=== PATIENT | female | born 1960 | race Caucasian/White ===

== ENCOUNTER 2017-07-28 22:12 | Emergency (ER) | payer BC, OTHER ==
[2017-07-28] MEDS ORDERED: methylPREDNISolone Sod Succ/PF 125 MG/2 ML VIAL ONE (22:27)
[2017-07-28] MEDS ORDERED: Famotidine/PF 20 mg/2ml Vial ONE (22:27)
[2017-07-28] MEDS ORDERED: diphenhydrAMINE HCl 50 MG/ML 1 ML VIAL ONE (22:27)
[2017-07-28 22:36] LABS: #Basophils 0.1 thou/uL (0.0-0.2); #Eosinphils 0.3 thou/uL (0.0-0.7); #Lymphocytes 3.8 thou/uL (1.20-3.40); #Neutrophils 3.8 thou/uL (1.40-6.50); %Basophils 1.4 % (0.0-1.0); %Eosinophils 3.2 % (0.0-10.0); %Lymphocytes 42.2 % (21.0-51.0); %Monocytes 10.8 % (0.0-10.0); Hematocrit 39.8 % (36.0-47.0); Mean Platelet Volume 8.4 fL (7.4-10.4); Red Blood Cell (RBC) Count 4.73 mill/uL (4.20-5.40); White Blood Cell (WBC) Count 8.9 thou/uL (4.8-10.8)
[2017-07-28 22:51] LABS: ALT (SGPT) 15 U/L (8-55); AST (SGOT) 16 U/L (5-34); Alkaline Phosphatase 53 U/L (40-150); Anion Gap 13 mmol/L (10-20); BUN (Urea Nitrogen) 16 mg/dL (9.8-20.1); Bilirubin, Total 0.2 mg/dL (0.2-1.2); Calc. Creatinine Clearance 0 mL/min (70-130); Calcium 9.6 mg/dL (7.8-10.44); Carbon Dioxide 26 mmol/L (22-29); Chloride 102 mmol/L (98-107); Estimated GFR-MDRD 66; Globulin 3.5 g/dL (2.4-3.5); Protein, Total 7.8 g/dL (6.0-8.3)
[2017-07-28 22:54] LABS: Troponin I Less than 0.010 ng/mL (< 0.028)
--- NOTE | 2017-08-02 17:08 | EKG ---
Test Reason : ALLERGIC REACTION Blood Pressure : / mmHG Vent. Rate : 065 BPM Atrial Rate : 065 BPM P-R Int : 186 ms QRS Dur : 076 ms QT Int : 402 ms P-R-T Axes : 055 015 054 degrees QTc Int : 418 ms Normal sinus rhythm Normal ECG Confirmed by DAVE HOSKINS D.O. ([id number]), copy editor CATALINA DE LEON ([id number]) on 08/02/2017 5:08:09 PM Referred By: MD HOSKINS Confirmed By:DAVE HOSKINS D.O.
== END 2017-07-28 23:30 | disposition home or self-care (01) ==
LOC: SCSER 22:12
DX: R06.02 Shortness of breath (principal); R21 Rash and other nonspecific skin eruption; T49.6X5A Adverse effect of otorhinolaryngological drugs and preparations, initial encounter; E03.9 Hypothyroidism, unspecified; Z79.899 Other long term (current) drug therapy
CPT/HCPCS: 80053; 82553; 84484; 85025; 93005; 96374; 96375; J1200; J2930; S0028

== ENCOUNTER 2019-07-15 23:46 | Emergency (ER) | payer OTHER ==
[2019-07-16 00:14] LABS: Bilirubin Negative (Negative); Blood, Urine Small (Negative); Clarity Slightly Cloudy (Clear); Glucose, Urine (Dipstick) Negative (Negative); Leukocyte Small (Negative); Nitrite Negative (Negative); Protein, Urine (Dipstick) Negative (Neg-Trace); Urobilinogen 0.2 mg/dL (Less than 2)
[2019-07-16 00:20] LABS: Bacteria/HPF Rare-Few HPF (None Seen); RBC/HPF 0-3 HPF (0-3); Squamous Epithelial 0-3 HPF (0-3)
[2019-07-16] MEDS ORDERED: Sulfameth/Trimethoprim DS 800-160mg TAB ONE (00:40)
--- NOTE | 2019-07-16 08:00 | CT ---
PRELIMINARY REPORT/[facility]/EMERGENCY AFTER HOURS PROCEDURE: PROCEDURE INFORMATION: Exam: CT Abdomen and Pelvis With Contrast Exam date and time: 07/16/2019 12:14 AM Clinical history: 59 years old, female; Other: Presssure; Patient HX: Patient presents for evaluation of lower abdominal pressure TECHNIQUE: Imaging protocol: Computed tomography of the abdomen and pelvis with intravenous contrast. COMPARISON: No relevant prior studies available. FINDINGS: Liver: Normal. No mass. Gallbladder and bile ducts: Normal. No calcified stones. No ductal dilation. Pancreas: Normal. No ductal dilation. Spleen: Normal. No splenomegaly. Adrenals: Normal. No mass. Kidneys and ureters: Normal. No hydronephrosis. Stomach and bowel: No bowel wall thickening or intestinal obstruction. Appendix: Normal appendix. Intraperitoneal space: Unremarkable. No free air. No significant fluid collection. Vasculature: Unremarkable. No abdominal aortic aneurysm. Lymph nodes: Unremarkable. No enlarged lymph nodes. Bladder: Unremarkable as visualized. Reproductive: Prior hysterectomy. Bones/joints: Unremarkable. No acute fracture. Soft tissues: Unremarkable. IMPRESSION: No acute findings. Thank you for allowing us to participate in the care of your patient. Dictated and Authenticated by: Mc Lunsford MD 07/16/2019 1:20 AM Central Time ([place] & [place]) FINAL REPORT EMERGENCY AFTER HOURS CT ABDOMEN AND PELVIS: I agree with the preliminary report provided by [facility]. There is no evidence of appendicitis. There is a mild amount of retained stool within the colon. 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 Unopacified liver, pancreas, adrenal glands, and spleen appear within normal limits. No renal or ureteral calculus is evident. There is scattered degenerative and osteoarthritic change. POS:
== END 2019-07-16 00:45 | disposition home or self-care (01) ==
LOC: SCSER 23:46
DX: N30.00 Acute cystitis without hematuria (principal); E03.9 Hypothyroidism, unspecified; Z79.899 Other long term (current) drug therapy
CPT/HCPCS: 74176; 81003; 81015; 87086